=== PATIENT | male | born 1955 | race Caucasian/White ===

== ENCOUNTER 2017-06-14 18:17 | Emergency (ER) | payer BC ==
[2017-06-14 18:35] VITALS: BP 134/66
--- NOTE | 2017-06-14 19:10 | EDM.PDOC ---
ED HPI GENERAL MEDICAL PROBLEM - General Chief Complaint: Lower Extremity Injury/Pain Stated Complaint: POSSIBLE INFECTION IN THE LT KNEE Time Seen by Provider: 06/14/17 19:05 Source of Information: Reports: Patient, Family (spouse) History Limitations: Reports: No Limitations - History of Present Illness INITIAL COMMENTS - FREE TEXT/NARRATIVE: Pt kneeled on a wood screw last week. Developed a scab on his left knee. Noted more swelling and redness on . Did squeeze some pus from it. Now with redness, warmth and swelling to knee area. No fever but has felt chilled today. Onset: Gradual Onset Date: 06/10/17 Duration: Getting Worse Location: Reports: Lower Extremity, Left Quality: Reports: Ache Severity: Mild Improves with: Reports: None Worsens with: Reports: Movement Context: Reports: Activity Associated Symptoms: Reports: Fever/Chills - Related Data Allergies Allergy/AdvReac Type Severity Reaction Status Date / Time No Known Allergies Allergy Verified 04/25/16 12:17 Home Meds: Home Meds Irbesartan [Avapro] 300 mg PO DAILY 04/23/16 [History] Omeprazole Magnesium [Prilosec Otc] 40 mg PO DAILY 04/23/16 [History] Past Medical History HEENT History: Reports: Impaired Vision Cardiovascular History: Reports: Hypertension Gastrointestinal History: Reports: GERD, Other (See Below) Other Gastrointestinal History: Abd hernia Musculoskeletal History: Reports: Fracture Neurological History: Reports: Concussion - Infectious Disease History Infectious Disease History: Reports: Mumps - Past Surgical History Musculoskeletal Surgical History: Reports: Arthroscopic Knee Social & Family History - Tobacco Use Smoking Status *Q: Never Smoker Years of Tobacco use: 20 Packs/Tins Daily: 2 - Alcohol Use Days Per Week of Alcohol Use: 0 - Recreational Drug Use Recreational Drug Use: No Review of Systems - Review of Systems Review Of Systems: See Below Constitutional: Reports: No Symptoms Mouth/Throat: Reports: No Symptoms Respiratory: Reports: No Symptoms Musculoskeletal: Reports: Leg Pain, Joint Swelling Skin: Reports: Erythema ED EXAM, GENERAL - Physical Exam Exam: See Below Exam Limited By: No Limitations General Appearance: Alert, WD/WN, No Apparent Distress Nose: Normal Inspection, Normal Mucosa, No Blood Throat/Mouth: Normal Inspection, Normal Lips, Normal Teeth, Normal Gums, Normal Oropharynx, Normal Voice, No Airway Compromise Head: Atraumatic, Normocephalic Neck: Normal Inspection, Supple, Non-Tender, Full Range of Motion Respiratory/Chest: No Respiratory Distress, Lungs Clear, Normal Breath Sounds, No Accessory Muscle Use, Chest Non-Tender Cardiovascular: Normal Peripheral Pulses, Regular Rate, Rhythm, No Edema, No Gallop, No JVD, No Murmur, No Rub Extremities: Leg Pain (left knee), Limited Range of Motion, Increased Warmth ( left knee with scabbed area, surrounding warmth, erythema and swelling) Course - Vital Signs Last Recorded V/S: Last Vital Signs Temp 102.0 F H 06/14/17 19:01 Pulse 90 06/14/17 19:01 Resp 20 06/14/17 19:01 BP 134/66 06/14/17 19:01 Pulse Ox 96 06/14/17 19:01 - Orders/Labs/Meds Labs: Laboratory Tests 06/14/17 Range/Units 19:22 WBC 16.2 H (4.5-11.0) K/uL RBC 4.13 L (4.30-5.90) M/uL Hgb 13.3 (12.0-15.0) g/dL Hct 39.1 L (40.0-54.0) % MCV 95 (80-98) fL MCH 32 H (27-31) pg MCHC 34 (32-36) % Plt Count 182 (150-400) K/uL Neut % (Auto) 80 H (36-66) % Lymph % (Auto) 8 L (24-44) % Summers % (Auto) 11 H (2-6) % Eos % (Auto) 0 L (2-4) % Baso % (Auto) 0 (0-1) % Meds: Medications Discontinued Medications Generic Name Dose Route Start Last Admin Trade Name Freq PRN Reason Stop Dose Admin Acetaminophen 650 mg 06/14/17 20:00 Tylenol PO 06/14/17 20:01 NOW ONE Ceftriaxone Sodium 1 gm 06/14/17 19:33 Rocephin IM 06/14/17 19:34 ONETIME ONE Lidocaine HCl 2 ml 06/14/17 20:00 Xylocaine-Mpf 1% INJECT 06/14/17 20:01 ONETIME ONE Departure - Departure Time of Disposition: 20:02 Disposition: Home, Self-Care 01 Condition: Good Clinical Impression: Cellulitis of knee, left - Discharge Information Referrals: Remberto Azar MD [Primary Care Provider] - Forms: ED Department Discharge Additional Instructions: CBC shows WBC 16.2. Tylenol 650mg po given. Rocephin 1gm IM given. Pt to use warm, moist heat to area. To return to ER tomorrow in 24 hours for repeat CBC and Rocephin. To shower with antibacterial soap and avoid picking at the wound. Return sooner if symptoms worsen. Pt and spouse voice understanding of plan. - Problem List & Annotations (1) Cellulitis of knee, left SNOMED Code(s): 36406567 Code(s): L03.116 - CELLULITIS OF LEFT LOWER LIMB Status: Acute Priority: Medium Current Visit: Yes
[2017-06-14] MEDS ORDERED: cefTRIAXone 1 GM Vial IM ONE (19:33)
[2017-06-14] MEDS ORDERED: Lidocaine 1% PF 2 ML SDV INJECT ONE (20:00)
[2017-06-14] MEDS ORDERED: Acetaminophen 325 MG Tab PO ONE (20:00)
== END 2017-06-14 20:54 | disposition home or self-care (01) ==
LOC: JP.ED 18:17
DX: L03.116 Cellulitis of left lower limb (principal); I10 Essential (primary) hypertension; K21.9 Gastro-esophageal reflux disease without esophagitis
CPT/HCPCS: 36415; 85025; 96372; 99284; A9270; J0696

== ENCOUNTER 2018-02-11 00:13 | Emergency (ER) | payer BC ==
[2018-02-11 00:26] VITALS: BP 164/95
[2018-02-11] MEDS ORDERED: Acetaminophen/HYDROcodone 325-5 MG Tab PO ONE (01:09)
[2018-02-11] MEDS ORDERED: Sulfamethoxazole/Trimethoprim 800-160 MG Tab PO ONE (01:09)
--- NOTE | 2018-02-11 01:17 | EDM.PDOC ---
ED HPI GENERAL MEDICAL PROBLEM - General Chief Complaint: Skin Complaint Stated Complaint: SWOLLEN LEGS/LOW TEMP Time Seen by Provider: 02/11/18 01:00 Source of Information: Reports: Patient, RN History Limitations: Reports: No Limitations - History of Present Illness INITIAL COMMENTS - FREE TEXT/NARRATIVE: 62 yo male with a pHx of MRSA infections was referred to dermatology for this and his appt is in about 8 hrs. Tonight decided he could not wait any longer so came to the ER due to the discomfort and a low grade fever. Recently finished a course of prednisone for contact dermatitis. He and his have both had MRSA infections on and off for some time now. Onset: Gradual Duration: Day(s):, Getting Worse Location: Reports: Generalized (spreading) Quality: Reports: Burning Severity: Moderate Improves with: Reports: None Worsens with: Reports: Other (time) Context: Reports: Other (Recurrent MRSA) Associated Symptoms: Reports: Fever/Chills (low grade), Rash. Denies: Diaphoresis, Nausea/Vomiting Treatments MEAT INSPECTOR: Reports: Other (see below) (none) - Related Data Allergies Allergy/AdvReac Type Severity Reaction Status Date / Time No Known Allergies Allergy Verified 04/25/16 12:17 Home Meds: Home Meds Irbesartan [Avapro] 300 mg PO DAILY 04/23/16 [History] Omeprazole Magnesium [Prilosec Otc] 40 mg PO DAILY 04/23/16 [History] Prednisone [IJD: predniSONE] 20 mg PO WITHBREAKFAST 02/11/18 [History] Triamcinolone Acetonide [Triamcinolone Acetonide 0.1% Crm] 1 applic TOP BID [History] Past Medical History HEENT History: Reports: Impaired Vision Cardiovascular History: Reports: Hypertension Gastrointestinal History: Reports: GERD, Other (See Below) Other Gastrointestinal History: Abd hernia Musculoskeletal History: Reports: Fracture Neurological History: Reports: Concussion - Infectious Disease History Infectious Disease History: Reports: MRSA, Mumps - Past Surgical History GI Surgical History: Reports: Appendectomy Musculoskeletal Surgical History: Reports: Arthroscopic Knee Social & Family History - Family History Family Medical History: Noncontributory - Tobacco Use Smoking Status *Q: Former Smoker Years of Tobacco use: 20 Packs/Tins Daily: 2 Used Tobacco, but Quit: Yes Month/Year Tobacco Last Used: 1993 - Caffeine Use Caffeine Use: Reports: Coffee - Alcohol Use Days Per Week of Alcohol Use: 0 - Recreational Drug Use Recreational Drug Use: No ED ROS GENERAL - Review of Systems Review Of Systems: See Below Constitutional: Reports: Fever (low grade) HEENT: Reports: No Symptoms Respiratory: Reports: No Symptoms Cardiovascular: Reports: No Symptoms GI/Abdominal: Reports: No Symptoms : Reports: No Symptoms Skin: Reports: Rash, Erythema Neurological: Reports: No Symptoms ED EXAM, SKIN/RASH Exam: See Below Exam Limited By: No Limitations General Appearance: Alert, WD/WN, No Apparent Distress Eye Exam: Bilateral Eye: Normal Inspection Ears: Normal External Exam, Normal Canal, Hearing Grossly Normal, Normal TMs Nose: Normal Inspection Throat/Mouth: Normal Inspection, Normal Voice, No Airway Compromise Head: Atraumatic, Normocephalic Neck: Normal Inspection Respiratory/Chest: No Respiratory Distress, Lungs Clear, Normal Breath Sounds Cardiovascular: Regular Rate, Rhythm Neurological: Alert, Oriented, CN II-XII Intact, Normal Cognition, No Motor/ Sensory Deficits Psychiatric: Normal Affect, Normal Mood Skin: Warm, Erythema, Increased Warmth, Rash (multiple pustules on his legs especially, but also on his arms and chest. ) Characteristics: Other (pustules) Associated features: Warmth, Tenderness Course - Vital Signs Text/Narrative:: Bactrim DS 1 po and Dale 1 po given. Last Recorded V/S: Last Vital Signs Temp 37.7 C 02/11/18 00:25 Pulse 117 H 02/11/18 00:25 Resp 16 02/11/18 00:25 BP 164/95 H 02/11/18 00:25 Pulse Ox 95 02/11/18 00:25 - Orders/Labs/Meds Orders: Active Orders 24 hr Category Date Time Status CULTURE WOUND + SMEAR [RM] Stat Lab 02/11/18 01:08 Ordered CULTURE WOUND + SMEAR [RM] Stat Lab 02/11/18 01:11 Ordered Meds: Medications Discontinued Medications Generic Name Dose Route Start Last Admin Trade Name Freq PRN Reason Stop Dose Admin Hydrocodone Bitart/Acetaminophen 1 tab 02/11/18 01:09 Dale 325-5 Mg PO 02/11/18 01:10 ONETIME ONE Trimethoprim/Sulfamethoxazole 1 tab 02/11/18 01:09 Septra Ds PO 02/11/18 01:10 ONETIME ONE Departure - Departure Time of Disposition: :18 Disposition: Home, Self-Care 01 Condition: Fair Clinical Impression: Skin pustule, Staph skin infection - Discharge Information Referrals: Remberto Azar MD [Primary Care Provider] - Forms: ED Department Discharge Additional Instructions: Take Bactrim DS every 12 hrs. Take Dale as needed for pain relief. Wash with soap and water often to reduce spread. Keep your appt for later today with dermatology. - My Orders Last 24 Hours: My Active Orders 02/11/18 01:08 CULTURE WOUND + SMEAR [RM] Stat 02/11/18 01:11 CULTURE WOUND + SMEAR [RM] Stat - Assessment/Plan Last 24 Hours: My Active Orders 02/11/18 01:08 CULTURE WOUND + SMEAR [RM] Stat 02/11/18 01:11 CULTURE WOUND + SMEAR [RM] Stat
== END 2018-02-11 01:30 | disposition home or self-care (01) ==
LOC: JP.ED 00:13
DX: L08.9 Local infection of the skin and subcutaneous tissue, unspecified (principal); B95.8 Unspecified staphylococcus as the cause of diseases classified elsewhere; I10 Essential (primary) hypertension; Z86.14 Personal history of Methicillin resistant Staphylococcus aureus infection; Z87.891 Personal history of nicotine dependence; Z79.899 Other long term (current) drug therapy
CPT/HCPCS: 87070; 87205; 99283; A9270

== ENCOUNTER 2019-07-27 07:23 | Day surgery (SDC) | payer BC, OTHER ==
[2019-07-27] MEDS ORDERED: Midazolam 1 MG/ML 2 ML SDV ONE (07:27)
[2019-07-27] MEDS ORDERED: fentaNYL 100 MCG/2 ML SDV ONE (07:27)
[2019-07-27] MEDS ORDERED: Propofol 200 MG/20 ML SDV ONE (07:27)
[2019-07-27] MEDS ORDERED: Sodium Chloride 0.9% 1,000 ML IV SCH (07:45)
[2019-07-27 10:49] VITALS: BP 124/68; PULSE 64
[2019-07-27] MEDS ORDERED: FLU Vacc QS2019-20(6MOS+)/PF 60 MCG/0.5 ML SYRINGE IM ONE (11:00)
--- NOTE | 2019-07-27 13:25 | OR ---
DATE OF PROCEDURE: 07/27/2019 SURGEON: Onesimo Park MD PROCEDURE: Colonoscopy. FINDINGS: Ascending colon polyp, approximately 5 mm, completely removed using cold biopsy forceps. COMPLICATIONS: None. ELECTRONICS RESEARCH ENGINEER: None. ANESTHESIA: MAC. PREOPERATIVE DIAGNOSIS: Screening colonoscopy. POSTOPERATIVE DIAGNOSIS: Screening colonoscopy. RISKS: Risks, benefits, alternatives, and limitations including, but not limited to, infection, bleeding, and perforation explained to the patient, who wished to proceed. PROCEDURE IN DETAIL: The patient was placed in left lateral decubitus position. Digital rectal exam was performed without abnormality. The scope was introduced and advanced atraumatically to the ileocecal valve. A photo was taken. The scope was brought back to the ascending, transverse, descending colon, and retroflexed. No evidence of old or new blood was noted. No masses. Aforementioned polyp was identified and completely removed using snare. No abnormalities on retroflex. Patient tolerated the procedure well. Onesimo Park MD /[id number]
== END 2019-07-27 11:05 | disposition home or self-care (01) ==
LOC: JP.SDS 07:23
PROVIDERS: ATTEND Surgery
DX: Z12.11 Encounter for screening for malignant neoplasm of colon (principal); D12.2 Benign neoplasm of ascending colon; K21.9 Gastro-esophageal reflux disease without esophagitis; I10 Essential (primary) hypertension; E78.5 Hyperlipidemia, unspecified; R73.03 Prediabetes; Z87.891 Personal history of nicotine dependence
CPT/HCPCS: 88305; 90686; G0008; J2250; J2704; J3010; J7030

== ENCOUNTER 2022-06-06 06:21 | Day surgery (SDC) | payer OTHER ==
[2022-06-06] MEDS ORDERED: fentaNYL 100 MCG/2 ML SDV ONE (07:19)
[2022-06-06] MEDS ORDERED: Midazolam 1 MG/ML 2 ML SDV ONE (07:19)
[2022-06-06] MEDS ORDERED: Propofol 200 MG/20 ML SDV ONE (07:19)
[2022-06-06] MEDS ORDERED: Lactated Ringers 1,000 ML IV SCH (07:30)
[2022-06-06 08:53] VITALS: BP 125/68; PULSE 54
== END 2022-06-06 08:52 | disposition home or self-care (01) ==
LOC: JP.SDS 06:21
PROVIDERS: ATTEND Family Medicine
DX: Z12.11 Encounter for screening for malignant neoplasm of colon (principal); D12.2 Benign neoplasm of ascending colon; I10 Essential (primary) hypertension; E78.5 Hyperlipidemia, unspecified; E11.9 Type 2 diabetes mellitus without complications; Z88.1 Allergy status to other antibiotic agents
CPT/HCPCS: 45380; J2250; J2704; J3010; J7120